=== PATIENT | male | born 1980 | race African-American/Black ===

== ENCOUNTER 2018-04-30 05:59 | Emergency (ER) | payer OTHER ==
[~2018-04-30] VITALS: Ht 170.2 cm; Wt 81.8 kg
[2018-04-30 06:29] VITALS: BP 130/70
== END 2018-04-30 07:13 | disposition home or self-care (01) ==
LOC: ER 05:59
DX: F10.10 Alcohol abuse, uncomplicated (principal); Y90.9 Presence of alcohol in blood, level not specified
CPT/HCPCS: 99283